=== PATIENT | female | born 1955 | race Caucasian/White ===

== ENCOUNTER → 2017-03-08 | Outpatient (CLI) | payer BC ==
[2017-03-08 14:29] LABS: HEMATOCRIT 45.9 % (37-47); MEAN CELL VOLUME 91.3 fL (80-100); MEAN CORPUSCULAR HEMOGLOBIN 29.4 pg (25-34); MEAN CORPUSCULAR HGB CONC 32.2 g/dl (32-36); MEAN PLATELET VOLUME 10.8 fL (7.4-10.4); PLATELET COUNT 181 K/uL (130-400); RED BLOOD COUNT 5.03 M/uL (4.2-5.4); WHITE BLOOD COUNT 5.01 K/uL (4.8-10.8)
[2017-03-08 15:12] LABS: FERRITIN 36.1 ng/ml (8.0-388.0); THYROID STIMULATING HORMONE 4.21 uIu/ml (0.300-4.500)
== END | disposition home or self-care (01) ==
LOC: C.LAB1850 13:49
PROVIDERS: ATTEND Internal Medicine Endocrinology, Diabetes & Metabolism
DX: E05.00 Thyrotoxicosis with diffuse goiter without thyrotoxic crisis or storm (principal); M85.80 Other specified disorders of bone density and structure, unspecified site; D50.9 Iron deficiency anemia, unspecified